=== PATIENT | male | born 1985 | race Caucasian/White ===

== ENCOUNTER 2022-04-24 16:13 | Emergency (ER) | payer BC ==
[2022-04-24 17:33] LABS: Group A Strep NOT DETECTED (NEGATIVE)
[2022-04-24 17:47] LABS: INFLUENZA A NEGATIVE (NEGATIVE); INFLUENZA B NEGATIVE (NEGATIVE); RESPIRATORY SYNCTIAL VIRUS NEGATIVE (Negative); SARS-CoV-2 Xpert Express NEGATIVE (NEGATIVE)
--- NOTE | 2022-04-24 17:49 | ERPHSYRPT ---
- History of Present Illness Source: patient, other () Exam Limitations: no limitations Patient Subjective Stated Complaint: Headache and fever that started around 0600 today Triage Nursing Assessment: Patient ambulated back to ER without difficulties. No SOB. He is alert and oriented. Skin tone normal. SHORT WNL. Physician History: 37 yo wm w headache today which is resolving. Pt has had a fever and mild sore throat but denies coryza/cough/N/V/D/abdominal pain. Timing/Duration: today Fever Severity: gone Associated Symptoms: denies symptoms, No stiff neck Allergies/Adverse Reactions: bacitracin Allergy (Verified 04/24/22 16:31) Home Medications: No Reportable Medications [No Reported Medications] 04/24/22 [History] Hx Tetanus, Diphtheria Vaccination/Date Given: Yes Hx Influenza Vaccination/Date Given: Yes Hx Pneumococcal Vaccination/Date Given: No Immunizations Up to Date: Yes Travel Risk - International Travel Have you traveled outside of the country in past 3 weeks: No - Coronavirus Screening Are you exhibiting any of the following symptoms?: Yes Symptoms: Fever, Headaches/Body Aches/Fatigue Close contact with a COVID-19 positive Pt in past 14-21 Days: No - Vaccine Status Have you recieved a Covid-19 vaccination: Yes [employer]: Moderna - Vaccination Dates Date of 2cond Vaccination (if applicable): ? - Review of Systems Constitutional: No Symptoms, Fever, Malaise Eyes: No Symptoms Ears, Nose, & Throat: No Symptoms, Throat Pain Respiratory: No Symptoms Cardiac: No Symptoms Abdominal/Gastrointestinal: No Symptoms Genitourinary Symptoms: No Symptoms Musculoskeletal: No Symptoms Skin: No Symptoms Neurological: No Symptoms, Headache Psychological: No Symptoms Endocrine: No Symptoms Hematologic/Lymphatic: No Symptoms Immunological/Allergic: No Symptoms - Past Medical History Pertinent Past Medical History: No - Past Surgical History Past Surgical History: No - Social History Smoking Status: Former smoker Exposure to second hand smoke: No Drug Use: none Patient Lives Alone: No - Nursing Vital Signs Nursing Vital Signs: Initial Vital Signs Temperature 98.8 F 04/24/22 16:32 Pulse Rate 81 04/24/22 16:32 Respiratory Rate 20 04/24/22 16:32 Blood Pressure 140/83 04/24/22 16:32 O2 Sat by Pulse Oximetry 95 04/24/22 16:32 Pain Scale Pain Intensity 6 WNL - Physical Exam General Appearance: no apparent distress Eye Exam: PERRL/EOMI ENT Exam: normal ENT inspection, no apparent trauma, hearing grossly normal, TMs normal, pharynx normal Neck Exam: normal inspection, non-tender, supple, full range of motion, trachea midline, No stiff neck, No Brudzinski's sign, No Kernig's sign, No meningismus Respiratory Exam: normal breath sounds, lungs clear, no respiratory distress Cardiovascular/Chest Exam: normal heart sounds, regular rate/rhythm, murmur, normal peripheral pulses Gastrointestinal/Abdominal Exam: soft, non tender, no distention Extremity Exam: non-tender, normal range of motion, normal inspection, normal capillary refill Neurologic Exam: alert, oriented x 3, cooperative, ton container filler II-XII nml as tested, normal mood/affect, nml cerebellar function, nml station & gait, sensation nml, No motor deficits, No sensory deficit Skin Exam: normal color, warm, dry Lymphatic: No adenopathy SpO2 Interpretation: normal SpO2: 96 O2 Delivery: Room Air - Course Nursing assessment & vital signs reviewed: Yes - Radiology Exams Chest X-ray Interpretation: Interpreted by me (CXR neg) Ordered Tests: Active Orders 24 hr Category Date Time Status CHEST 1 VIEW (PORTABLE) Stat Exams 04/24/22 17:52 Taken UA W/RFX UR CULTURE Stat Lab 04/24/22 18:00 Completed Lab/Rad Data: Laboratory Results 04/24/22 04/24/22 Range/Units 18:00 17:05 Urine Color Yellow (Yellow) Urine Appearance Clear (Clear) Urine pH 6.5 (4.6-8.0) Ur Specific [place] 1.010 (1.005-1.030) Urine Protein Negative (Negative) Urine Glucose (UA) Negative (Negative) mg/dL Urine Ketones Negative (Negative) Urine Blood Trace (Negative) Urine Nitrite Negative (Negative) Urine Bilirubin Negative (Negative) Urine Urobilinogen 0.2 (0.2) mg/dL Ur Leukocyte Esterase Negative (Negative) U Hyaline Cast (Auto) NONE SEEN (0-2) /LPF Urine Microscopic RBC 0-2 (0-5) /HPF Urine Microscopic WBC 0-2 (0-5) /HPF Ur Epithelial Cells None Seen (None Seen) /HPF Urine Bacteria None Seen (None Seen) /HPF Urine Culture Reflexed NO (NO) Influenza Type A Ag NEGATIVE (NEGATIVE) Influenza Type B Ag NEGATIVE (NEGATIVE) RSV (PCR) NEGATIVE (Negative) SARS-CoV-2 (PCR) NEGATIVE (NEGATIVE) Group A Strep Antibody NOT DETECTED (NEGATIVE) - Progress Progress Note: 04/24/22 18:41 Nursing note and vital signs reviewed No food or housing insecurities noted All lab results and CXR reviewed and shared w pt Pt wo nuchal rigidity or actual fever in ER Pt has access to medical care and meds 04/24/22 20:43 Counseled pt/family regarding: lab results, diagnosis, need for follow-up, rad results - Departure Departure Disposition: Home Clinical Impression: Fever Condition: Stable Critical Care Time: No Referrals: CARMELA LYNN MD [Primary Care Provider] - Follow up/PCP as directed Instructions: Fever of Unknown Origin, Headache, Adult (DC) Additional Instructions: Follow up with your family MD in 1-2 days Return to ER for worsening of condition
[2022-04-24 18:09] VITALS: BP 122/84; PULSE 74
[2022-04-24 18:18] LABS: Appearance Clear (Clear); Bacteria None Seen /HPF (None Seen); Bilirubin Negative (Negative); Blood Trace (Negative); Epithelial Cells None Seen /HPF (None Seen); Glucose, Urine Negative (Negative); Hyaline Casts NONE SEEN /LPF (0-2); Ketones Negative (Negative); Leukocyte Esterase Negative (Negative); Nitrite Negative (Negative); Ph 6.5 (4.6-8.0); Protein,Urine Dip Negative (Negative); RBC 0-2 /HPF (0-5); Urobilinogen 0.2 mg/dL (0.2); WBC 0-2 /HPF (0-5)
[2022-04-24 18:23] LABS: ADD URINE CULTURE? NO (NO)
[2022-04-24 20:44] VITALS: O2SAT 96
--- NOTE | 2022-04-25 08:32 | XRAY ---
Indication: Fever. Comparison: None Portable chest demonstrates normal heart and lungs. Bony thorax intact with old right clavicle fracture.
== END 2022-04-24 19:06 | disposition home or self-care (01) ==
LOC: ED 16:13
DX: R50.9 Fever, unspecified (principal); R51.9 Headache, unspecified; J02.9 Acute pharyngitis, unspecified
CPT/HCPCS: 0241U; 71045; 81001; 87651; 99283